=== PATIENT | female | born 1985 | race African-American/Black ===

== ENCOUNTER 2017-10-10 09:45 | Emergency (ER) | payer SELFPAY ==
--- NOTE | 2017-10-10 10:07 | ER Document Report ---
HPI - HPI Patient complains to provider of: right knee pain Onset: Other - 3 days Onset/Duration: Persistent, Waxing and waning Pain Level: 4 Context: 32 yo morbidly obese pt c/o popping. cracking, pain in anterior right knee when she gets up from sitting, a little better when she starts to walk. Hx arthritis in the knee. No hx gout. No fever. Associated Symptoms: None Exacerbated by: Other - see above Relieved by: Denies - ROS ROS below otherwise negative: Yes Systems Reviewed and Negative: Yes All other systems reviewed and negative - MUSCULOSKELETAL Musculoskeletal: REPORTS: Extremity pain Past Medical History - General Information source: Patient - Social History Smoking Status: Never Smoker Chew tobacco use (# tins/day): No Frequency of alcohol use: None Family History: Reviewed & Not Pertinent Patient has suicidal ideation: No Patient has homicidal ideation: No Pulmonary Medical History: Reports: Hx Bronchitis Renal/ Medical History: Denies: Hx Peritoneal Dialysis Surgical Hx: Negative Vertical Provider Document - CONSTITUTIONAL Agree With Documented VS: Yes Exam Limitations: No Limitations General Appearance: No Apparent Distress - INFECTION CONTROL TRAVEL OUTSIDE OF THE [place] IN LAST 30 DAYS: No - HEENT HEENT: Normocephalic - NECK Neck: Supple - RESPIRATORY O2 Sat by Pulse Oximetry: 98 - MUSCULOSKELETAL/EXTREMETIES Musculoskeletal/Extremeties: MAEW, FROM, Tender - minimal anterolateral right knee, No Edema - NEURO Level of Consciousness: Awake, Alert Motor/Sensory: No Motor Deficit, No Sensory Deficit - DERM Integumentary: Warm, Dry, No Rash Course - Re-evaluation Re-evalutation: 10/10/17 11:00 X-rays negative per radiologist - Vital Signs Vital signs: Temp Pulse Resp BP Pulse Ox 99.1 F 102 H 16 146/83 H 98 10/10/17 09:49 10/10/17 09:49 10/10/17 09:49 10/10/17 09:49 10/10/17 09:49 Discharge - Discharge Clinical Impression: Right anterior knee pain Right knee DJD Qualifiers: Osteoarthritis type: unspecified Qualified Code(s): M17.11 - Unilateral primary osteoarthritis, right knee Condition: Good Disposition: HOME, SELF-CARE Instructions: Huy Wrap ([facility]), Anti-Inflammatory Medication ([facility]), Arthritis ( [facility]) Additional Instructions: huy wrap, instructed proper application and use warm compress to er if worse Copy of knee x-ray given to you See orthopedic for follow-up Prescriptions: Ibuprofen [Motrin 800 mg Tablet] 800 mg PO Q8HP PRN #30 tablet PRN Reason: Referrals: PATRICIA BERNARD MD [ACTIVE STAFF] - Follow up as needed
--- NOTE | 2017-10-10 10:32 | RADIOLOGY REPORT (SQ) ---
EXAM DESCRIPTION: KNEE RIGHT 4 VIEWS COMPLETED DATE/TIME: 10/10/2017 10:20 am REASON FOR STUDY: right knee pain COMPARISON: None. NUMBER OF VIEWS: Four views right knee. LIMITATIONS: None. FINDINGS: Normal bone density. No displaced fracture. No significant diffusion. Joint spaces are relatively well maintained on nonweightbearing images. Minimal patellar and tibiofibular degenerativ e spurring. OTHER: No other significant finding. IMPRESSION: No displaced fracture evident. Mild degenerative changes. TECHNICAL DOCUMENTATION: JOB ID: [id number] Reading location - IP/workstation name: [email or web address]
[2017-10-10 11:29] VITALS: BP 135/91
== END 2017-10-10 11:30 | disposition home or self-care (01) ==
LOC: ER 09:45
DX: M17.11 Unilateral primary osteoarthritis, right knee (principal); M25.561 Pain in right knee; E66.01 Morbid (severe) obesity due to excess calories; Z68.43 Body mass index [BMI] 50.0-59.9, adult
CPT/HCPCS: 99283

== ENCOUNTER 2017-12-30 16:23 | Emergency (ER) | payer SELFPAY ==
--- NOTE | 2017-12-30 17:04 | ER Document Report ---
HPI - HPI Patient complains to provider of: Right wrist pain Onset: Other - 1 month Onset/Duration: Gradual, Persistent Pain Level: 5 Context: 32-year-old morbidly obese female with chronic irregular menses is complaining of right wrist for a month. It started in her second and third right fingers and the ibuprofen helped but then it reoccurred recently now to when she uses her computer or her phone or twists her wrist has increased pain. She lifts patients at work. No specific injury. Associated Symptoms: None Exacerbated by: Movement Relieved by: Denies Similar symptoms previously: No Recently seen / treated by doctor: No - ROS ROS below otherwise negative: Yes Systems Reviewed and Negative: Yes All other systems reviewed and negative Past Medical History - General Information source: Patient - Social History Smoking Status: Never Smoker Frequency of alcohol use: None Drug Abuse: None Occupation: Patient healthcare marketer Lives with: Family Family History: Reviewed & Not Pertinent Pulmonary Medical History: Reports: Hx Bronchitis Renal/ Medical History: Denies: Hx Peritoneal Dialysis Surgical Hx: Negative Vertical Provider Document - CONSTITUTIONAL Agree With Documented VS: Yes Exam Limitations: No Limitations General Appearance: No Apparent Distress - INFECTION CONTROL TRAVEL OUTSIDE OF THE [place] IN LAST 30 DAYS: No - HEENT HEENT: Normocephalic - NECK Neck: Supple - MUSCULOSKELETAL/EXTREMETIES Musculoskeletal/Extremeties: MAEW, FROM, Tender - Right wrist over the radial tendon and the snuffbox, Edema - Questionable - NEURO Level of Consciousness: Awake, Alert Motor/Sensory: No Motor Deficit, No Sensory Deficit Notes: 2+ radial pulse Course - Re-evaluation Re-evalutation: 12/30/17 17:25 The photovoltaic technician Rocael asked the pt when her last cycle was and if she was , she did not know so he rec. that she can get test bc they require all patients to sign a status on all xray's. I called Dr. Johnson the radiologist and explained this to him since she should not be any risk for radiation exposure to pelvis if we shield the patient for the extremity right wrist. Dr. Johnson said he would talk to the photovoltaic technician and sheilding is fine. Pt OK with that so Rocael will shield and get xray in the room. 12/30/17 17:27 - Vital Signs Vital signs: Temp Pulse Resp BP Pulse Ox 99.6 F 97 16 171/99 H 96 05/30/18 16:38 12/30/17 16:38 12/30/17 16:38 12/30/17 16:38 12/30/17 16:38 Procedures - Immobilization Right Wrist Thumb Time completed: 18:21 Pre-Proc Neuro Vasc Exam: Normal Immobilizer type: Thumb spica Performed by: RN Post-Proc Neuro Vasc Exam: Normal Alignment checked and good: Yes Discharge - Discharge Clinical Impression: Right wrist tendonitis, snuffbox tenderness Right wrist sprain Qualifiers: Encounter type: initial encounter Qualified Code(s): S63.501A - Unspecified sprain of right wrist, initial encounter Condition: Good Disposition: HOME, SELF-CARE Instructions: Acetaminophen, Ibuprofen (General) ([facility]), Splint Precautions ([facility] ), Wrist Sprain ([facility]), Temporary Splint ([facility]), Tendonitis ([facility]) Additional Instructions: See orthopedic doctor in 1 week call for appointment Splint for 1 week Motrin Tylenol Return to the emergency room any concerns Prescriptions: Ibuprofen [Motrin 800 mg Tablet] 800 mg PO Q8HP PRN #30 tablet PRN Reason: Referrals: KRYSTINA BOLES MD [ACTIVE STAFF] - Follow up in 1 week
--- NOTE | 2017-12-30 17:59 | RADIOLOGY REPORT (SQ) ---
EXAM DESCRIPTION: WRIST RIGHT 3 VIEWS COMPLETED DATE/TIME: 12/30/2017 5:45 pm REASON FOR STUDY: right wrist turner COMPARISON: None. NUMBER OF VIEWS: Four views TECHNIQUE: AP, lateral, navicular, and oblique radiographic images acquired of the right wrist. LIMITATIONS: None. FINDINGS: MINERALIZATION: Normal. BONES: No acute fracture or dislocation. No worrisome bone lesions. Normal alignment. SOFT TISSUES: No soft tissue swelling. No foreign body. OTHER: There is negative ulnar variance. IMPRESSION: No acute fracture or dislocation. There is negative ulnar variance. TECHNICAL DOCUMENTATION: JOB ID: [id number] [employer]- All Rights Reserved Reading location - IP/workstation name: [email or web address]
[2017-12-30] MEDS ORDERED: IBUPROFEN 800 MG TABLET PO ONE (18:21)
[2017-12-30] MEDS ORDERED: ACETAMINOPHEN 325 MG TABLET PO ONE (18:21)
[2017-12-30 18:31] VITALS: BP 149/92
== END 2017-12-30 19:06 | disposition home or self-care (01) ==
LOC: ER 16:23
PROC: 2W3CX1Z Immobilization of Right Lower Arm using Splint (ICD-10-PCS; principal; 2017-12-30)
DX: S63.501A Unspecified sprain of right wrist, initial encounter (principal); M25.531 Pain in right wrist; E66.01 Morbid (severe) obesity due to excess calories; X58.XXXA Exposure to other specified factors, initial encounter
CPT/HCPCS: 99283

== ENCOUNTER → 2018-04-26 | Outpatient (CLI) | payer OTHER ==
--- NOTE | 2018-04-26 14:35 | RADIOLOGY REPORT (SQ) ---
EXAM DESCRIPTION: MRI RT LOWER JOINT WITHOUT COMPLETED DATE/TIME: 04/26/2018 11:41 am REASON FOR STUDY: DERANG OF UNSP MEDIAL MENSC DUE TO OLD TEAR/INJ, UNSP KNEE M23.205 DERANG OF UNSP MEDIAL MENSC DUE TO OLD TEAR/INJ, UNS COMPARISON: None. TECHNIQUE: Rightknee images acquired and stored on PACS. Multiplanar images include fat sensitive s equences as T1, water sensitive sequences as FST2 or STIR, cartilage sensitive sequences as FSPD, and gradient echo sequences. LIMITATIONS: Body habitus. FINDINGS: JOINT AND BURSAE: No effusion. BONE CORTEX AND MARROW: No alteration of signal to suggest marrow replacement. No worrisome bone lesi ons. No occult fracture. ACL: Intact. No degeneration or ganglion cyst. PCL: Intact. MCL: Intact. No periligamentous edema or fluid. LCL: Intact. No periligamentous edema or fluid. MEDIAL MENISCUS: Attenuated with fraying of the body. LATERAL MENISCUS: Intact. MEDIAL COMPARTMENT: Mild -moderate osteophytes. Approximately 1 cm osteochondral lesion medial tibia l plateau. Heterogeneous high signal on T2. LATERAL COMPARTMENT: Cartilage thinning. PATELLA: Cartilage thinning. Small osteophytes. Lateral patellar tilt and lateral translation. Ret inaculum intact. EXTENSOR MECHANISM: Intact. Quadriceps and patella tendons normal. SOFT TISSUES: Adjacent muscles and subcutaneous tissues normal. Normal flow void in popliteal artery and vein. OTHER: No other significant finding. IMPRESSION: 1. Bucket-handle tear of the medial meniscus of uncertain chronicity. 2. Tricompartment osteoarthritis, more advanced in the medial compartment. Potential unstable osteoc hondral lesion medial tibial plateau. 3. Patellofemoral tracking abnormality. TECHNICAL DOCUMENTATION: JOB ID: [id number] [employer]- All Rights Reserved Reading location - IP/workstation name: [email or web address]
== END ==
LOC: RAD 10:29
PROVIDERS: ATTEND Orthopaedic Surgery
DX: M23.203 Derangement of unspecified medial meniscus due to old tear or injury, right knee (principal); M17.11 Unilateral primary osteoarthritis, right knee

== ENCOUNTER 2018-05-13 07:47 | Emergency (ER) | payer OTHER ==
[2018-05-13 07:52] VITALS: BP 141/100
--- NOTE | 2018-05-13 08:14 | ER Document Report ---
HPI - HPI Patient complains to provider of: right wrist pain Onset: Other - few days Quality of pain: Achy Pain Level: 4 Context: Patient presents emergency department with complaints of right wrist pain. Patient reports she is left-hand dominant but while she is at work she uses the right hand. Patient denies injury. Reports history of tendinitis. She reports she works at [employer] and although she is left-hand dominant she uses her right hand, reports some tingling in her pinky first and second finger. Patient reported pain is 4/5 upon arrival but reports that she took some Tylenol and is now kicking in and her pain is 2/5. Denies other symptoms such as fever vomiting diarrhea. Denies weakness. Associated Symptoms: None Exacerbated by: Movement - CONSTITUTIONAL Constitutional: DENIES: Fever, Chills - EENT EENT: DENIES: Sore Throat, Ear Pain, Eye problems - NEURO Neurology: DENIES: Headache, Weakness, Vision blurred, Dizzinesss / Vertigo - CARDIOVASCULAR Cardiovascular: DENIES: Chest pain - RESPIRATORY Respiratory: DENIES: Trouble Breathing, Coughing - GASTROINTESTINAL Gastrointestinal: DENIES: Abdominal Pain, Black / Bloody Stools - URINARY Urinary: DENIES: Dysuria, Urgency, Frequency - REPRODUCTIVE Reproductive: DENIES: : - MUSCULOSKELETAL Musculoskeletal: REPORTS: Extremity pain - right wrist Past Medical History - General Information source: Patient Last Menstrual Period: irregular - Social History Smoking Status: Unknown if Ever Smoked Chew tobacco use (# tins/day): No Frequency of alcohol use: None Drug Abuse: None Occupation: [employer] Lives with: Family Family History: Reviewed & Not Pertinent Patient has suicidal ideation: No Patient has homicidal ideation: No Pulmonary Medical History: Reports: Hx Bronchitis Renal/ Medical History: Denies: Hx Peritoneal Dialysis Surgical Hx: Negative Vertical Provider Document - CONSTITUTIONAL Agree With Documented VS: Yes Exam Limitations: No Limitations General Appearance: WD/WN, No Apparent Distress - INFECTION CONTROL TRAVEL OUTSIDE OF THE [place] IN LAST 30 DAYS: No - HEENT HEENT: Atraumatic, Normocephalic - NECK Neck: Supple - RESPIRATORY Respiratory: Breath Sounds Normal, No Respiratory Distress - CARDIOVASCULAR Cardiovascular: Regular Rate - MUSCULOSKELETAL/EXTREMETIES Musculoskeletal/Extremeties: MAEW, FROM, Tender - right wrist + tinel, neg phalen, no erythema no swelling no warmth no obvious deformity good radial pulse good cap refill - NEURO Level of Consciousness: Awake, Alert, Appropriate Motor/Sensory: No Motor Deficit - DERM Integumentary: Warm, Dry Adult Front & Back Diagram: 1 - +tinel Course - Re-evaluation Re-evalutation: 05/13/18 08:35 no xray completed due to neg. trauma, hx of tendonitis, Brace placed patient reports he feels better. Patient again instructed to follow-up. - Vital Signs Vital signs: Temp Pulse Resp BP Pulse Ox 97.9 F 78 20 141/100 H 97 05/13/18 07:51 05/13/18 07:51 05/13/18 07:51 05/13/18 07:51 05/13/18 07:51 Procedures - Immobilization Right Wrist Immobilizer type: Cock-up Performed by: VIANCA llamas Post-Proc Neuro Vasc Exam: Normal Alignment checked and good: Yes Discharge - Discharge Clinical Impression: Right wrist pain, suspect carpal tunnel syndrome Condition: Stable Disposition: HOME, SELF-CARE Instructions: Carpal Tunnel Syndrome ([facility]), Use of [id number] Ibuprofen ( [facility]), Temporary Splint ([facility]) Additional Instructions: *You have been evaluated for right wrist pain, suspect carpal tunnel *Rest/Ice/Elevate your wrist *Maintain the brace *Follow up with Dr Fiore, call for an appointment *Take ibuprofen as indicated *Return to ED for worsening condition, changes, needs Monitor your blood pressure. Your blood pressure was elevated today. This may be because you were anxious, in pain or because you need medication. It is important to follow up with your primary care provider for full evaluation. Forms: Return to Work, Elevated Blood Pressure Referrals: KRYSTINA BOLES MD [Primary Care Provider] - Follow up in 3-5 days
== END 2018-05-13 08:37 | disposition home or self-care (01) ==
LOC: ER 07:47
DX: M25.531 Pain in right wrist (principal); R20.2 Paresthesia of skin; R03.0 Elevated blood-pressure reading, without diagnosis of hypertension; Z87.39 Personal history of other diseases of the musculoskeletal system and connective tissue
CPT/HCPCS: 99283; L3908

== ENCOUNTER 2018-05-27 08:06 | Day surgery (SDC) | payer OTHER ==
[2018-05-20 10:06] LABS: HEMATOCRIT 36.3 % (36.0-47.0); MEAN CORPUSCULAR HEMOGLOBIN 24.8 pg (27.0-33.4); MEAN CORPUSCULAR HGB CONC 33.1 g/dL (32.0-36.0); MEAN CORPUSCULAR VOLUME 75 fl (80-97); PLATELET COUNT 299 10^3/uL (150-450); RED BLOOD COUNT 4.85 10^6/uL (3.72-5.28); RED CELL DISTRIBUTION WIDTH 15.4 % (11.5-14.0); WHITE BLOOD COUNT 6.5 10^3/uL (4.0-10.5)
--- NOTE | 2018-05-20 11:13 | RADIOLOGY REPORT (SQ) ---
EXAM DESCRIPTION: CHEST PA/LATERAL COMPLETED DATE/TIME: 05/20/2018 9:32 am REASON FOR STUDY: PRE-OP COMPARISON: None. EXAM PARAMETERS: NUMBER OF VIEWS: two views TECHNIQUE: Digital Frontal and Lateral radiographic views of the chest acquired. RADIATION DOSE: NA LIMITATIONS: none FINDINGS: LUNGS AND PLEURA: No opacities, masses or pneumothorax. No pleural effusion. MEDIASTINUM AND HILAR STRUCTURES: No masses or contour abnormalities. HEART AND VASCULAR STRUCTURES: Heart normal size. No evidence for failure. BONES: No acute findings. HARDWARE: None in the chest. OTHER: No other significant finding. IMPRESSION: NO SIGNIFICANT RADIOGRAPHIC FINDING IN THE CHEST. TECHNICAL DOCUMENTATION: JOB ID: [id number] [employer]- All Rights Reserved Reading location - IP/workstation name: [email or web address]
[2018-05-20 12:06] LABS: ANION GAP 10 (5-19); BLOOD UREA NITROGEN 13 mg/dL (7-20); CARBON DIOXIDE 24 mmol/L (22-30); CHLORIDE 107 mmol/L (98-107); GLUCOSE 131 mg/dL (75-110); POTASSIUM 4.4 mmol/L (3.6-5.0); SODIUM 140.5 mmol/L (137-145)
--- NOTE | 2018-05-20 12:53 | EKG REPORT ---
SEVERITY:- NORMAL ECG - SINUS RHYTHM : Confirmed by: Edwin Armstrong MD 20-May-2018 12:52:32
[~2018-05-27 08:06] MED LIST: BUPIVACAINE HCL 0.5 % INJ/PF 30 ML SDV ONE
[2018-05-27] MEDS ORDERED: CEFAZOLIN 2 GM/D5W RTU 2 GM/50 ML RTUPB IV ONE (08:19)
[2018-05-27 08:48] LABS: APPEARANCE,URINE SLIGHTLY-CLOUDY; BILIRUBIN,URINE NEGATIVE (NEGATIVE); COLOR,URINE YELLOW; GLUCOSE, URINE NEGATIVE (NEGATIVE); KETONES,URINE NEGATIVE (NEGATIVE); LEUKOCYTE ESTERASE,URINE SMALL (NEGATIVE); NITRITE,URINE NEGATIVE (NEGATIVE); PROTEIN,URINE NEGATIVE (NEGATIVE); URINE SPECIFIC GRAVITY 1.027
[2018-05-27] MEDS ORDERED: SUCCINYLCHOLINE CHLORIDE INJ 200 MG/10 ML VIAL ONE (09:06)
[2018-05-27] MEDS ORDERED: MIDAZOLAM 2 MG/2 ML INJ ONE (10:23)
[2018-05-27] MEDS ORDERED: FENTANYL CITRATE INJ/PF 100 MCG/2 ML AMPUL ONE (10:23)
[2018-05-27] MEDS ORDERED: ONDANSETRON HCL INJ/PF 4 MG/2 ML SDV ONE (10:24)
[2018-05-27] MEDS ORDERED: DEXAMETHASONE SOD PHOSPHATE INJ 4 MG/1 ML VIAL ONE (10:24)
[2018-05-27] MEDS ORDERED: PROPOFOL INJ 200 MG/20 ML VIAL IV ONE (10:24)
[2018-05-27] MEDS ORDERED: DEXMEDETOMIDINE INJ 80 MCG/20 ML VIAL IV ONE (10:24)
[2018-05-27] MEDS ORDERED: ACETAMINOPHEN 1,000 MG/100 ML RTUPB IV ONE (10:24)
[2018-05-27] MEDS ORDERED: OXYCODONE-ACETAMINOPHEN 5-325 MG TABLET PO PRN ×4 (11:28→12:40)
[2018-05-27] MEDS ORDERED: MORPHINE SULFATE 10 MG/ML INJ IV PRN (11:28)
[2018-05-27] MEDS ORDERED: MEPERIDINE HCL/PF INJ 25 MG/1 ML DISP.SYRIN IV PRN (11:28)
[2018-05-27] MEDS ORDERED: FENTANYL CITRATE INJ/PF 100 MCG/2 ML AMPUL IV PRN ×3 (11:28)
[2018-05-27] MEDS ORDERED: PROMETHAZINE HCL INJ 25 MG/1 ML VIAL IV PRN ×2 (11:28)
[2018-05-27] MEDS ORDERED: DIPHENHYDRAMINE HCL 50 MG/ML VIAL IV PRN (11:28)
--- NOTE | 2018-05-27 11:55 | Discharge Summary ---
Discharge Summary (SDC) - Discharge Final Diagnosis: Partial lateral and medial meniscectomy and chondroplasty of the right knee Date of Surgery: 05/27/18 Discharge Date: 05/27/18 Condition: Good Prescriptions: Oxycodone HCl/Acetaminophen [Percocet 5-325 mg Tablet] 1 - 2 tab PO ASDIR PRN # 30 tablet PRN Reason: Discharge Diet: As Tolerated Respiratory Treatments at Home: Deep Breathing/Coughing Discharge Activity: No Lifting/Push/Pulling, Slowly Increase Activity, Walk Frequently Home Care Assistance: None Needed Adaptive Devices on Discharge: Axillary Crutches Report the Following to Your Physician Immediately: Shortness of Breath, Vomiting, Increase in Pain, Fever over 101 Degrees, Unusual Bleeding, Redness, Swelling, Warmth, Increased Soreness, Drainage-Yellow, Drainage-Palacio, Drainage- Green, Drainage-Foul Smelling
--- NOTE | 2018-05-27 12:18 | Operative Report ---
Operative Report DATE OF SURGERY: 05/27/18 PREOPERATIVE DIAGNOSIS: Right knee medial meniscus tear and early degenerative changes POSTOPERATIVE DIAGNOSIS: Same with lateral meniscus tear OPERATION: Right knee arthroscopic partial medial lateral meniscectomy and chondroplasty SURGEON: KRYSTINA SALAZAR ANESTHESIA: GA TISSUE REMOVED OR ALTERED: Meniscal shavings COMPLICATIONS: None ESTIMATED BLOOD LOSS: 10 mL INTRAOPERATIVE FINDINGS: As above PROCEDURE: Patient was brought to the operating room and induced and intubated in supine position. Timeout was done identifying the right knee was the correct site. Extremity was too large for application of a tourniquet. 11 blade was used to establish the anterolateral portal. Scope was introduced. At this point I established my anteromedial portal. 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 I turned my attention to the medial compartment where I noted a degenerative complex tear of the medial meniscus with grade 3 diffuse changes of the medial femoral condyle.I used the meniscal biter and 4.0mm shaver to resect majority of the posterior horn of the medial meniscus. Shaver smooth out the edges of the meniscus which gave a good stable construct. I this point redirected my camera to the notch and visualized the anterior cruciate ligament graft which was intact as well as the PCL which showed to be intact. I then placed the extremity in a [id number] and at this point saw the lateral meniscus with peripheral degenerative noticeable tears. Popliteal hiatus was intact. Articular cartilage also was pristine with no evidence of chondromalacia or wear. Proceeded to use the shaver to then debride and clean the peripheral degenerative tearing of the lateral meniscus and to a stable construct. At this point the fluid of the knee was removed and I proceeded to close the 2 portal sites with 3-0 nylon. Proceeded to use quarter percent Marcaine to inject in the portal sites and intra-articular knee. The portal sites were covered with Xeroform 4 x 4 dressing and ABD pad followed by a soft roll. I overwrapped it with an Huy bandage. Drapes were cut and removed. Patient was successfully extubated and sent to PACU in stable condition.
[2018-05-27 13:53] VITALS: BP 110/72
== END 2018-05-27 13:56 | disposition home or self-care (01) ==
LOC: OROUT 08:06
PROVIDERS: ATTEND Orthopaedic Surgery
DX: M23.321 Other meniscus derangements, posterior horn of medial meniscus, right knee (principal); M23.361 Other meniscus derangements, other lateral meniscus, right knee; M22.41 Chondromalacia patellae, right knee; E66.01 Morbid (severe) obesity due to excess calories; Z68.43 Body mass index [BMI] 50.0-59.9, adult; Z01.818 Encounter for other preprocedural examination
CPT/HCPCS: 93005; 36415; 85027; 81025; 80048; 81001; 71046; 93010; 29880; J2250; J3490 ×2; J1100; J3010; J0330; J2405; J2704; J0690; J0131; 1400